=== PATIENT | female | born 1975 | race Two or more races ===

== ENCOUNTER 2018-12-12 10:31 | Emergency (ER) | payer BC, MEDICAID, OTHER ==
--- NOTE | 2018-12-12 10:53 | EDM.PDOC ---
ED HPI GENERAL MEDICAL PROBLEM - General Chief Complaint: Lower Extremity Injury/Pain Stated Complaint: FELL AND INJURED RT KNEE Time Seen by Provider: 12/12/18 10:52 Source of Information: Reports: Patient History Limitations: Reports: No Limitations - History of Present Illness INITIAL COMMENTS - FREE TEXT/NARRATIVE: Patient is a 43-year-old female presents ED complaining of right knee pain. Patient states 2 days ago she fell on her knees bilaterally injuring her right knee and left elbow during the fall. She was evaluated in the emergency room [facility] with x-rays obtained. She was evaluated the following day in the clinic was advised that the x-rays were lost and they do not have the results. She is here continued to have pain to the medial aspect of the right knee worsen with weightbearing, palpitation, flexion and extension at the knee. She is able to weight-bear and ambulate with a limp present. She denies any dish additional injuries to the affected extremity. She offers no additional complaints. Right Leg Pain Score (Numeric/FACES): 8 - Related Data Allergies Allergy/AdvReac Type Severity Reaction Status Date / Time latex Allergy Airway Verified 12/12/18 10:46 Tightness Home Meds: Home Meds Levothyroxine 1 tab PO DAILY 04/02/14 [History] Topiramate [Topamax] 50 mg PO DAILY 10/18/18 [History] Baclofen 10 mg PO TID 12/12/18 [History] Past Medical History HEENT History: Reports: None Cardiovascular History: Reports: None Respiratory History: Reports: PE, Pneumonia, Recurrent Other Respiratory History: PE x2 Gastrointestinal History: Reports: Bowel Obstruction Genitourinary History: Reports: None 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: Musculoskeletal History: Reports: None Neurological History: Reports: CVA, Other (See Below) Other Neuro History: Chronic jaw pain: Trigeminal neuralgia Psychiatric History: Reports: None Endocrine/Metabolic History: Reports: None Hematologic History: Reports: None Immunologic History: Reports: None Oncologic (Cancer) History: Reports: None Dermatologic History: Reports: None - Infectious Disease History Infectious Disease History: Reports: Chicken Pox - Past Surgical History Head Surgeries/Procedures: Reports: None HEENT Surgical History: Reports: None Cardiovascular Surgical History: Reports: None Respiratory Surgical History: Reports: None GI Surgical History: Reports: None Female Surgical History: Reports: None Endocrine Surgical History: Reports: None Neurological Surgical History: Reports: None Musculoskeletal Surgical History: Reports: None Oncologic Surgical History: Reports: None Dermatological Surgical History: Reports: None Social & Family History - Family History Family Medical History: Noncontributory - Caffeine Use Caffeine Use: Reports: Coffee, Energy Drinks Review of Systems - Review of Systems Review Of Systems: ROS reveals no pertinent complaints other than HPI. ED EXAM, GENERAL - Physical Exam Exam: See Below Exam Limited By: No Limitations General Appearance: Alert, WD/WN, No Apparent Distress Ears: Hearing Grossly Normal Nose: Normal Inspection Throat/Mouth: Normal Voice, No Airway Compromise Head: Atraumatic, Normocephalic Neck: Normal Inspection, Supple Respiratory/Chest: No Respiratory Distress, No Accessory Muscle Use Cardiovascular: Normal Peripheral Pulses, Regular Rate, Rhythm Peripheral Pulses: 2+: Posterior Tibial (L) Extremities: No Pedal Edema, Normal Capillary Refill, Other (Patient has some old bruises to the anterior aspect of the right left knee. Mild swelling noted to the lateral aspect of the right knee. Some old abrasions noted as well. She is able to flex and extend at the knee with limited range of motion increased pain noted. With palpation of the right knee she has complaints along the anterior aspect of the patella and along the medial joint line. No pain noted to the posterior and lateral aspect of the knee. With provocative testing patient had no joint laxity with testing for anterior and posterior drawer. With valgus and varus patient had discomfort noted to the medial aspect of the knee. No swelling noted to the right lower extremity. No pain along the posterior aspect of the lower leg. Peripheral vascular is intact. Skin is pink and warm and dry.) Neurological: Alert, Oriented, CN II-XII Intact, Normal Cognition, No Motor/ Sensory Deficits Psychiatric: Normal Affect, Normal Mood Skin Exam: Warm, Dry, Intact Course - Vital Signs Last Recorded V/S: Last Vital Signs Temp 98.7 F 12/12/18 10:51 Pulse 84 12/12/18 10:51 Resp 16 12/12/18 10:51 BP 112/84 12/12/18 10:51 Pulse Ox 100 12/12/18 10:51 - Orders/Labs/Meds Orders: Active Orders 24 hr Category Date Time Status DME for Discharge [COMM] Stat Oth 12/12/18 11:59 Ordered Meds: Medications Discontinued Medications Generic Name Dose Route Start Last Admin Trade Name Luigi PRN Reason Stop Dose Admin Hydrocodone Bitart/Acetaminophen 1 tab 12/12/18 11:59 12/12/18 12:14 [place] 325-5 Mg PO 12/12/18 12:00 1 tab ONETIME ONE Administration - Re-Assessments/Exams Free Text/Narrative Re-Assessment/Exam: I was able to review the x-rays of the right knee and left elbow that was obtained at [facility] in [place] on 12/11/2018. Both x-rays did not reveal any acute bony abnormalities. Discussed results of the x-rays with the patient. She appears to be in no pain upon entering the room. Pain medication has not been administered. I have ordered knee immobilizer and crutches. Suspect patient has a contusion to the right knee with recent fall. She may have strained/torn the medial collateral ligament and also possibly involve the meniscus. At this point patient was instructed to be nonweightbearing toe-touch only for balance utilize crutches to ambulate. She'll follow-up with orthopedic surgeon of her choice next week to 10 days. Patient was informed that if she does not do things that make it hurt pain should be specifically controlled with taking Tylenol and also application of ice with elevation. Patient agrees with plan return precautions discussed with the patient. Patient had no further questions or concerns. Departure - Departure Time of Disposition: 12:47 Disposition: Home, Self-Care 01 Condition: Good Clinical Impression: Sprain of knee, Contusion of knee Contusion Qualifiers: Encounter type: initial encounter Contusion area: knee Laterality: right Qualified Code(s): S80.01XA - Contusion of right knee, initial encounter Sprain of MCL joint of knee Qualifiers: Encounter type: subsequent encounter Laterality: right Qualified Code(s): S83.411D - Sprain of medial collateral ligament of right knee, subsequent encounter - Discharge Information Instructions: Crutch Use, Adult, [id number], How to Use a Knee Immobilizer, [id number] Referrals: PCP,None [Primary Care Provider] - Christiano Rojas MD [Physician] - Forms: ED Department Discharge Additional Instructions: As discussed suspect you have a contusion to the anterior medial aspect of the right knee. You may have strained the MCL and also possibly have a meniscus tear. With that said you are to toe-touch only for balance, utilize crutches to ambulate. Utilizing knee immobilizer when ambulating may take off to ice and elevate. Apply ice to the affected area 3 times a day, 30 minutes in duration, do not apply directly on the skin. Utilize Tylenol for pain. With no weightbearing pump your right calf 10 times every hour while awake to decrease chance for blood clot. Call and make an appointment to see an orthopedic surgeon of your choice in 1 wk to 10 days. Follow-up with your PCP for further pain management if needed. Again refrain from any activities that cause worsening discomfort. May return back to ED if he develops any new or worsening symptoms. - My Orders Last 24 Hours: My Active Orders 12/12/18 11:59 DME for Discharge [COMM] Stat - Assessment/Plan Last 24 Hours: My Active Orders 12/12/18 11:59 DME for Discharge [COMM] Stat
[2018-12-12 11:09] VITALS: BP 112/84
[2018-12-12] MEDS ORDERED: Acetaminophen/HYDROcodone 325-5 MG Tab PO ONE (11:59)
== END 2018-12-12 13:10 | disposition home or self-care (01) ==
LOC: JD.ED 10:31
DX: S83.411D Sprain of medial collateral ligament of right knee, subsequent encounter (principal); Z91.040 Latex allergy status; Z79.899 Other long term (current) drug therapy; W19.XXXD Unspecified fall, subsequent encounter
CPT/HCPCS: 99284; A9270

== ENCOUNTER 2019-03-06 11:29 | Emergency (ER) | payer MEDICAID, OTHER ==
--- NOTE | 2019-03-06 12:03 | EDM.PDOC ---
ED HPI GENERAL MEDICAL PROBLEM - General Chief Complaint: Syncope Stated Complaint: SYNCOPE YESTERDAY - FEELS DIZZY/HEAD INJURY Time Seen by Provider: 03/06/19 12:03 Source of Information: Reports: Patient History Limitations: Reports: No Limitations - History of Present Illness INITIAL COMMENTS - FREE TEXT/NARRATIVE: Patient is a 43-year-old female complaining of a syncopal episode and vaginal bleeding. Patient states while standing at the sink today while preparing food she developed some tunnel vision with blurred vision and passed out for a short period of time. She awoke on her own and was able to get herself up and drive to the ED on her own course. States she believes it's more related to her hemoglobin level. She's had vaginal bleeding for the past 3 weeks. Over the past few days of bleeding has increased to 1 pad every 2 hours. There are no clots present. There is bright blood present. She denies any blood from her rectum. She has no abdominal pain as we speak. As at times experiences some intermittent sharp discomfort to her abdomen that comes and goes as quickly as it comes on. She denies being since she has an implant present to her right arm. She is not sexually active. She has no history of syncopal episode as such nor vaginal bleeding as such as well. Her last menstrual cycle was the February 08-. She normally only bleeds for 2 days and then resolves. She has a history of stroke 1 2013 which left some slight residual weakness to the left upper and lower extremity. She's also had blood clots to her lung and was on Lovenox up until recent. Her PCP discontinued this medication per neurology recommendations. [facility] in [place] that she sees recommended continue on the med with no clear cut reason why she had the stroke or PE. They suspected all related to her high platelets. Patient admits to having 12 transfusions in the past. This was not related to bleeding. Again the patient believes all her current symptoms are related to her low hemoglobin level. She' s had symptoms like this in the past. She is on baclofen and states she's never had any adverse reactions with taking this medication. She does have a history of hypothyroidism and is on levothyroxine 200 mcg by mouth daily. She has been taking this medication on a regular basis. Per patient she is also on Cymbalta. The baclofen and Topamax are for her trigeminal neuralgia. She denies any alcohol use, smoking, and or recreational drugs. She has no history of heart disease. Headache Pain Score (Numeric/FACES): 3 - Related Data Allergies Allergy/AdvReac Type Severity Reaction Status Date / Time latex Allergy Airway Verified 12/12/18 10:46 Tightness Home Meds: Home Meds Levothyroxine 200 mg PO DAILY 04/02/14 [History] Baclofen 10 mg PO TID 12/12/18 [History] Levothyroxine 25 mcg PO ACBREAKFAST #30 tab 03/06/19 [Rx] Multivitamin [Multivitamins] 1 tab PO DAILY 03/06/19 [History] Topiramate [Topamax] 50 mg PO BID 03/06/19 [History] Past Medical History HEENT History: Reports: None Cardiovascular History: Reports: None Respiratory History: Reports: PE, Pneumonia, Recurrent Other Respiratory History: PE x2 Gastrointestinal History: Reports: Bowel Obstruction Genitourinary History: Reports: None 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: Musculoskeletal History: Reports: None Neurological History: Reports: CVA, Other (See Below) Other Neuro History: Chronic jaw pain: Trigeminal neuralgia Psychiatric History: Reports: None Endocrine/Metabolic History: Reports: None Hematologic History: Reports: None Immunologic History: Reports: None Oncologic (Cancer) History: Reports: None Dermatologic History: Reports: None - Infectious Disease History Infectious Disease History: Reports: Chicken Pox - Past Surgical History Head Surgeries/Procedures: Reports: None HEENT Surgical History: Reports: None Cardiovascular Surgical History: Reports: None Respiratory Surgical History: Reports: None GI Surgical History: Reports: None Female Surgical History: Reports: None Endocrine Surgical History: Reports: None Neurological Surgical History: Reports: None Musculoskeletal Surgical History: Reports: None Oncologic Surgical History: Reports: None Dermatological Surgical History: Reports: None Social & Family History - Family History Family Medical History: Noncontributory - Caffeine Use Caffeine Use: Reports: Coffee, Energy Drinks ED ROS GENERAL - Review of Systems Review Of Systems: ROS reveals no pertinent complaints other than HPI. - Physical Exam Exam: See Below Exam Limited By: No Limitations General Appearance: Alert, WD/WN, Anxious Eye Exam: Bilateral Eye: EOMI, Normal Inspection, Nystagmus (none noted), PERRL , Vision Changes (none currently. blurred vision occassionally) Ears: Hearing Grossly Normal Nose: Normal Inspection, Normal Mucosa, No Blood Throat/Mouth: Normal Inspection, Normal Oropharynx, Normal Voice, No Airway Compromise Head Exam: Atraumatic, Normocephalic Neck: Normal Inspection, Supple, Non-Tender, Full Range of Motion Respiratory/Chest: No Respiratory Distress, Lungs Clear, Normal Breath Sounds, No Accessory Muscle Use, Chest Non-Tender Cardiovascular: Normal Peripheral Pulses, Regular Rate, Rhythm, No Murmur GI/Abdominal: Normal Bowel Sounds, Soft, Non-Tender, No Organomegaly, No Distention Neuro Exam (Abbreviated): Alert, Oriented, CN II-XII Intact, Normal Cognition, No Motor/Sensory Deficits, Other (No facial droop, slurred speach, pronator drift, or weakness discrepancies to upper and lower extremities. Finger to nose intact. Rapid alternating movements intact. Patients gait is normal. ) Back Exam: Normal Inspection Extremities: Normal Inspection, Normal Range of Motion, Non-Tender Psychiatric: Normal Affect, Anxious, Other (pressured speech) Skin Exam: Warm, Dry, Intact, Normal Color Course - Vital Signs Last Recorded V/S: Last Vital Signs Temp 97.7 F 03/06/19 11:46 Pulse 67 03/06/19 15:22 Resp 16 03/06/19 15:22 BP 119/93 H 03/06/19 15:22 Pulse Ox 100 03/06/19 15:22 Orthostatic Blood Pressure [ 111/87 Standing] Orthostatic Blood Pressure [ 120/89 Sitting] Orthostatic Blood Pressure [ 88/63 Supine] - Orders/Labs/Meds Orders: Active Orders 24 hr Category Date Time Status EKG 12 Lead [EKG Documentation Completion] [RC] STAT Care 03/06/19 12:31 Active Orthostatic Vital Signs [RC] ASDIRECTED Care 03/06/19 12:26 Active Labs: Laboratory Tests 03/06/19 03/06/19 03/06/19 Range/Units 11:50 11:50 11:50 WBC 6.88 (3.98-10.04) K/mm3 RBC 4.34 (3.98-5.22) M/mm3 Hgb 13.7 (11.2-15.7) gm/L Hct 42.1 (34.1-44.9) % MCV 97.0 H (79.4-94.8) fl MCH 31.6 (25.6-32.2) pg MCHC 32.5 (32.2-35.5) g/dl RDW Std Deviation 46.0 (36.4-46.3) fL Plt Count 442 H (182-369) K/mm3 MPV 9.2 L (9.4-12.3) fl Neutrophils % (Manual) 64 H (40-60) % Band Neutrophils % 0 (0-10) % Lymphocytes % (Manual) 25 (20-40) % Atypical Lymphs % 0 % Monocytes % (Manual) 5 (2-10) % Eosinophils % (Manual) 2 (0.7-5.8) % Basophils % (Manual) 4 H (0.1-1.2) Platelet Estimate Increased Plt Morphology Comment See note RBC Morph Comment Normal PT 10.4 (9.5-12.1) SECONDS INR 0.95 APTT 26 (24-31) SECONDS Sodium 140 (136-145) mEq/L Potassium 3.8 (3.5-5.1) mEq/L Chloride 105 (98-107) mEq/L Carbon Dioxide 26 (21-32) mEq/L Anion Gap 12.8 (5-15) BUN 13 (7-18) mg/dL Creatinine 0.9 (0.55-1.02) mg/dL Est Cr Clr Drug Dosing 62.07 mL/min Estimated GFR (MDRD) > 60 (>60) mL/min BUN/Creatinine Ratio 14.4 (14-18) Glucose 85 (74-106) mg/dL Calcium 8.6 (8.5-10.1) mg/dL Total Bilirubin 0.1 L (0.2-1.0) mg/dL AST 29 (15-37) U/L ALT 47 (14-59) U/L Alkaline Phosphatase 40 L (46-116) U/L Troponin I (0.00-0.056) ng/mL C-Reactive Protein < 0.2 (<1.0) mg/dL Total Protein 7.3 (6.4-8.2) g/dl Albumin 3.6 (3.4-5.0) g/dl Globulin 3.7 gm/dL Albumin/Globulin Ratio 1.0 (1-2) Free T4 (0.76-1.46) ng/dL TSH 3rd Generation 169.310 H (0.358-3.74) uIU/mL Urine Color (Yellow) Urine Appearance (Clear) Urine pH (5.0-8.0) Ur Specific [place] (1.005-1.030) Urine Protein (Negative) Urine Glucose (UA) (Negative) Urine Ketones (Negative) Urine Occult Blood (Negative) Urine Nitrite (Negative) Urine Bilirubin (Negative) Urine Urobilinogen (0.2-1.0) Ur Leukocyte Esterase (Negative) Urine RBC (0-5) /hpf Urine WBC (0-5) /hpf Ur Epithelial Cells (0-5) /hpf Amorphous Sediment (NOT SEEN) /hpf Urine Bacteria (FEW) /hpf Hyaline Casts (0-5) /lpf Urine Mucus (FEW) /hpf Urinalysis Comment Urine HCG, Qual (NEGATIVE) Urine Opiates Screen (SOSSMC=039) Ur Buprenorphine Scrn (CUTOFF=10) Ur Oxycodone Screen (ACI2KL=630) Urine Methadone Screen (IHQFRI=408) Ur Propoxyphene Screen (QKYVDM=337) Ur Barbiturates Screen (QTWRPE=528) Ur Tricyclics Screen (UFZIUQ=883) Ur Phencyclidine Scrn (CUTOFF=25) Ur Amphetamine Screen (TZYENG=681) U Methamphetamines Scrn (CSBHQA=340) U Benzodiazepines Scrn (EOWLDA=877) U Cocaine Metab Screen (UDMEHF=460) U Marijuana (THC) Screen (CUTOFF=50) Blood Type 03/06/19 03/06/19 03/06/19 Range/Units 11:50 13:00 13:00 WBC (3.98-10.04) K/mm3 RBC (3.98-5.22) M/mm3 Hgb (11.2-15.7) gm/L Hct (34.1-44.9) % MCV (79.4-94.8) fl MCH (25.6-32.2) pg MCHC (32.2-35.5) g/dl RDW Std Deviation (36.4-46.3) fL Plt Count (182-369) K/mm3 MPV (9.4-12.3) fl Neutrophils % (Manual) (40-60) % Band Neutrophils % (0-10) % Lymphocytes % (Manual) (20-40) % Atypical Lymphs % % Monocytes % (Manual) (2-10) % Eosinophils % (Manual) (0.7-5.8) % Basophils % (Manual) (0.1-1.2) Platelet Estimate Plt Morphology Comment RBC Morph Comment PT (9.5-12.1) SECONDS INR APTT (24-31) SECONDS Sodium (136-145) mEq/L Potassium (3.5-5.1) mEq/L Chloride (98-107) mEq/L Carbon Dioxide (21-32) mEq/L Anion Gap (5-15) BUN (7-18) mg/dL Creatinine (0.55-1.02) mg/dL Est Cr Clr Drug Dosing mL/min Estimated GFR (MDRD) (>60) mL/min BUN/Creatinine Ratio (14-18) Glucose (74-106) mg/dL Calcium (8.5-10.1) mg/dL Total Bilirubin (0.2-1.0) mg/dL AST (15-37) U/L ALT (14-59) U/L Alkaline Phosphatase (46-116) U/L Troponin I (0.00-0.056) ng/mL C-Reactive Protein (<1.0) mg/dL Total Protein (6.4-8.2) g/dl Albumin (3.4-5.0) g/dl Globulin gm/dL Albumin/Globulin Ratio (1-2) Free T4 (0.76-1.46) ng/dL TSH 3rd Generation (0.358-3.74) uIU/mL Urine Color Yellow (Yellow) Urine Appearance Clear (Clear) Urine pH 6.0 (5.0-8.0) Ur Specific [place] > or = 1.030 (1.005-1.030) Urine Protein 1+ H (Negative) Urine Glucose (UA) Negative (Negative) Urine Ketones Negative (Negative) Urine Occult Blood Negative (Negative) Urine Nitrite Negative (Negative) Urine Bilirubin 1+ H (Negative) Urine Urobilinogen 0.2 (0.2-1.0) Ur Leukocyte Esterase Negative (Negative) Urine RBC Not seen (0-5) /hpf Urine WBC Not seen (0-5) /hpf Ur Epithelial Cells 0-5 (0-5) /hpf Amorphous Sediment Moderate H (NOT SEEN) /hpf Urine Bacteria Many H (FEW) /hpf Hyaline Casts 0-5 (0-5) /lpf Urine Mucus Many H (FEW) /hpf Urinalysis Comment Urine HCG, Qual Negative (NEGATIVE) Urine Opiates Screen (QMISQA=340) Ur Buprenorphine Scrn (CUTOFF=10) Ur Oxycodone Screen (NVX9PU=569) Urine Methadone Screen (HAPPSG=180) Ur Propoxyphene Screen (ONIMWO=335) Ur Barbiturates Screen (YAQCID=179) Ur Tricyclics Screen (BFUJDH=610) Ur Phencyclidine Scrn (CUTOFF=25) Ur Amphetamine Screen (CZFRQS=052) U Methamphetamines Scrn (FIHPZJ=290) U Benzodiazepines Scrn (UNBTIA=497) U Cocaine Metab Screen (CFRAQD=292) U Marijuana (THC) Screen (CUTOFF=50) Blood Type B POSITIVE 03/06/19 03/06/19 03/06/19 Range/Units 13:00 13:44 15:03 WBC (3.98-10.04) K/mm3 RBC (3.98-5.22) M/mm3 Hgb (11.2-15.7) gm/L Hct (34.1-44.9) % MCV (79.4-94.8) fl MCH (25.6-32.2) pg MCHC (32.2-35.5) g/dl RDW Std Deviation (36.4-46.3) fL Plt Count (182-369) K/mm3 MPV (9.4-12.3) fl Neutrophils % (Manual) (40-60) % Band Neutrophils % (0-10) % Lymphocytes % (Manual) (20-40) % Atypical Lymphs % % Monocytes % (Manual) (2-10) % Eosinophils % (Manual) (0.7-5.8) % Basophils % (Manual) (0.1-1.2) Platelet Estimate Plt Morphology Comment RBC Morph Comment PT (9.5-12.1) SECONDS INR APTT (24-31) SECONDS Sodium (136-145) mEq/L Potassium (3.5-5.1) mEq/L Chloride (98-107) mEq/L Carbon Dioxide (21-32) mEq/L Anion Gap (5-15) BUN (7-18) mg/dL Creatinine (0.55-1.02) mg/dL Est Cr Clr Drug Dosing mL/min Estimated GFR (MDRD) (>60) mL/min BUN/Creatinine Ratio (14-18) Glucose (74-106) mg/dL Calcium (8.5-10.1) mg/dL Total Bilirubin (0.2-1.0) mg/dL AST (15-37) U/L ALT (14-59) U/L Alkaline Phosphatase (46-116) U/L Troponin I < 0.017 (0.00-0.056) ng/mL C-Reactive Protein (<1.0) mg/dL Total Protein (6.4-8.2) g/dl Albumin (3.4-5.0) g/dl Globulin gm/dL Albumin/Globulin Ratio (1-2) Free T4 0.17 L (0.76-1.46) ng/dL TSH 3rd Generation (0.358-3.74) uIU/mL Urine Color (Yellow) Urine Appearance (Clear) Urine pH (5.0-8.0) Ur Specific [place] (1.005-1.030) Urine Protein (Negative) Urine Glucose (UA) (Negative) Urine Ketones (Negative) Urine Occult Blood (Negative) Urine Nitrite (Negative) Urine Bilirubin (Negative) Urine Urobilinogen (0.2-1.0) Ur Leukocyte Esterase (Negative) Urine RBC (0-5) /hpf Urine WBC (0-5) /hpf Ur Epithelial Cells (0-5) /hpf Amorphous Sediment (NOT SEEN) /hpf Urine Bacteria (FEW) /hpf Hyaline Casts (0-5) /lpf Urine Mucus (FEW) /hpf Urinalysis Comment Urine HCG, Qual (NEGATIVE) Urine Opiates Screen Negative (VLNODI=101) Ur Buprenorphine Scrn Negative (CUTOFF=10) Ur Oxycodone Screen Negative (ODQ9MS=544) Urine Methadone Screen Negative (LDOYEM=262) Ur Propoxyphene Screen Negative (DZUDOX=258) Ur Barbiturates Screen Negative (AHUIIV=475) Ur Tricyclics Screen Negative (KQWOMY=790) Ur Phencyclidine Scrn Negative (CUTOFF=25) Ur Amphetamine Screen Negative (MAXVBJ=130) U Methamphetamines Scrn Negative (GBLRSB=805) U Benzodiazepines Scrn Negative (NQOCIF=870) U Cocaine Metab Screen Negative (NNEUVF=662) U Marijuana (THC) Screen Negative (CUTOFF=50) Blood Type Meds: Medications Discontinued Medications Generic Name Dose Route Start Last Admin Trade Name Freq PRN Reason Stop Dose Admin Acetaminophen 975 mg 03/06/19 13:06 03/06/19 13:15 Tylenol PO 03/06/19 13:07 975 mg NOW ONE Administration Sodium Chloride 1,000 mls @ 250 mls/hr 03/06/19 12:26 03/06/19 12:44 Normal Saline IV 03/06/19 16:25 250 mls/hr ONETIME ONE Administration Labetalol HCl 20 mg 03/06/19 13:51 Normodyne IVPUSH 03/06/19 13:52 ONETIME ONE Protocol Levothyroxine Sodium 25 mcg 03/06/19 14:53 03/06/19 15:17 Levothyroxine PO 03/06/19 14:54 25 mcg ONETIME ONE Administration - Re-Assessments/Exams Free Text/Narrative Re-Assessment/Exam: On exam patient is anxious and has some pressured speech. She is having difficult with coming up with words at times. She states this is normal for her. She believes all her symptoms are related to the vaginal bleeding. She weighs her hemoglobin is low. She's had similar symptoms like this in the past that required blood transfusions. Currently the patient offers no additional complaints. With examination patient's blood pressure 114/91 heart rate 77 SPO2 100%. Patient is afebrile. IV will be established with normal saline 250 mL per hour. Labs and studies to be obtained include: CBC, chem 14, hCG, CRP, drug screen, coag studies, TSH, ABO /Rh type, UA, ekg, and head CT without contrast. We will also obtain orthostatic vitals. Labs reviewed: Hemoglobin 13.7, platelet count 442, chemistry panel essentially normal. CRP normal. TSH elevated at 169.3. UA negative. Urine drug screen negative. FT4 has been ordered. She is taking the synthoid as prescribed. No goiter or pain to the thyroid. EKG normal sinus rhythm no acute ST changes. Head CT Impression: 1. Nothing acute is appreciated on noncontrast head CT study. Free T4 0.17. Levothyroxine dose is subtherapeutic. Thus will increase to 225 mcqs every day. Recheck of TSH and free T4 within 6 weeks. In addition hemoglobin level is normal. She has no goiter or painful thyroid on examination. No findings concerning for increased edema to her lower extremities , PND, orthopnea, or recent weight gain. Requested to perform a pelvic exam to evaluate for bleeding. Patient had no blood within her urine. Patient refuses. She will follow up with PCP and [facility] specialist of her choice. Patient's feeling much better after receiving the IV fluids. Vitals have been stable. She is ready be discharged home. In error troponin was not orderd. I suspect this will not be elevated since patient does not have a heart history nor complained of any chest discomfort prior to syncopal episode. She will be discharged without results if positive she will be called back in. Discharge instructions as documented. Return precautions discussed with the patient. Troponin was WNL. Departure - Departure Time of Disposition: 14:54 Disposition: Home, Self-Care 01 Condition: Good Clinical Impression: Orthostatic dizziness, Orthostatic hypotension Hypothyroidism Qualifiers: Hypothyroidism type: unspecified Qualified Code(s): E03.9 - Hypothyroidism, unspecified - Discharge Information Prescriptions: Levothyroxine 25 mcg PO ACBREAKFAST #30 tab Instructions: Thyroid-Stimulating Hormone Test, Orthostatic Hypotension, Hypothyroidism, Thyroxine Test, Dehydration, Adult, [id number], Syncope, Easy- to-Read Referrals: PCP,Not In Area [Primary Care Provider] - Forms: ED Department Discharge Additional Instructions: Vitals obtained today indicated you are orthostatic. Symptoms have resolved after IV fluids. Push the fluids. With body position changes please take your time to allow your body to obtain equilibrium. In addition labs indicated you' re thyroid levels are not within normal limits. TSH 169 and FT4 0.17. The levothyroxine dose is subtherapeutic. You're currently taking 200 g every day of the Synthroid.. We will increase that to 225 g every day. Recheck of thyroid studies should be obtained in 6 weeks. In addition please follow up with PCP this coming week for reevaluation. Hopefully with regulation of your thyroid levels the vaginal bleeding will subside. Current hemoglobin is normal. No blood within your urine. Please see [facility] specialists of your choice if this persists. - My Orders Last 24 Hours: My Active Orders 03/06/19 12:26 Orthostatic Vital Signs [RC] ASDIRECTED 03/06/19 12:31 EKG 12 Lead [EKG Documentation Completion] [RC] STAT - Assessment/Plan Last 24 Hours: My Active Orders 03/06/19 12:26 Orthostatic Vital Signs [RC] ASDIRECTED 03/06/19 12:31 EKG 12 Lead [EKG Documentation Completion] [RC] STAT
[2019-03-06] MEDS ORDERED: Sodium Chloride 0.9% 1,000 ML IV ONE (12:26)
[2019-03-06] MEDS ORDERED: Acetaminophen 325 MG Tab PO ONE (13:06)
[2019-03-06] MEDS ORDERED: Labetalol 100 MG/20 ML MDV IVPUSH ONE (13:51)
--- NOTE | 2019-03-06 14:12 | CT ---
Head CT Technique: Multiple axial sections through the brain were obtained. Intravenous contrast was not utilized. Comparison: No prior intracranial imaging. Findings: Ventricles along with basal cisterns and sulci over the convexities are within normal limits for the patient's age. Very minimal basal ganglia calcification is noted which is felt to be incidental. No abnormal parenchymal densities are otherwise seen. No midline shift or mass effect is seen. Bone window settings were reviewed which shows the visualized sinuses to appear clear. No acute calvarial abnormality is seen. Impression: 1. Nothing acute is appreciated on noncontrast head CT study. Diagnostic code #1
[2019-03-06] MEDS ORDERED: Levothyroxine 25 MCG Tab PO ONE (14:53)
[2019-03-06 15:26] VITALS: BP 119/93
== END 2019-03-06 15:22 | disposition home or self-care (01) ==
LOC: JD.ED 11:29
DX: I95.1 Orthostatic hypotension (principal); E03.9 Hypothyroidism, unspecified; Z91.040 Latex allergy status; Z79.899 Other long term (current) drug therapy
CPT/HCPCS: 36415; 70450; 80053; 80306; 81001; 81025; 84439; 84443; 84484; 85007; 85027; 85610; 85730; 86140; 86900; 86901; 93005; 96360; 96361; 99284; A9270; J7040; 93010

== ENCOUNTER 2023-06-29 00:53 | Emergency (ER) | payer BC, MEDICAID, OTHER ==
[2023-06-29 01:09] VITALS: BP 128/63; PULSE 93
== END 2023-06-29 01:25 ==
LOC: JD.ED 00:53
DX: F10.129 Alcohol abuse with intoxication, unspecified (principal)
CPT/HCPCS: 99281; 99284